=== PATIENT | female | born 1980 | race Caucasian/White ===

== ENCOUNTER → 2018-06-09 07:43 | Outpatient (CLI) | payer OTHER, SELFPAY ==
--- NOTE | 2018-06-09 07:47 | RAD_ITS ---
STUDY: X-RAY - LEFT ANKLE REASON FOR EXAM: Female, 38 years old. Pain following a recent fall. TECHNIQUE: 3 view(s) of the ankle. COMPARISON: None. FINDINGS: Normal visualized distal tibia and fibula. There is evidence of a nondisplaced small avulsion fracture of the medial malleolus. Normal tibiotalar articulation and ankle mortise. Small plantar spur. The visualized subtalar, talonavicular, calcaneocuboid and tarsal articulations are normal. Diffuse soft tissue swelling. RAD/Ankle min 3 Views IMPRESSION: Findings suggestive of a nondisplaced avulsion fracture of the medial malleolus. Soft tissue swelling. Electronically Signed: Vasu Maier MD at 9:51 EST , Service support ,
== END ==
PROVIDERS: Referring Provider Physician Assistant; Visit Provider Physician Assistant
DX: S93.402A Sprain of unspecified ligament of left ankle, initial encounter (principal); W19.XXXA Unspecified fall, initial encounter
CPT/HCPCS: 73610

== ENCOUNTER → 2018-06-12 14:49 | Outpatient (CLI) | payer OTHER, SELFPAY ==
[2018-06-12 14:04] VITALS: BMI 48.1
--- NOTE | 2018-06-12 14:54 | RAD_ITS ---
STUDY: X-RAY - LEFT ANKLE REASON FOR EXAM: Female, 38 years old. Injury of the left ankle TECHNIQUE: 3 view(s) of the ankle. COMPARISON: 06/09/2018 FINDINGS: There is a small, well-corticated bony density adjacent to the medial malleolus, which is stable since 06/09/2018. Normal medial and lateral malleoli. Normal tibiotalar articulation and ankle mortise on neutral and stress views. Small calcaneal spur noted. The visualized subtalar, talonavicular, calcaneocuboid and tarsal articulations are normal. There is mild soft tissue swelling. RAD/Ankle 2 Views IMPRESSION: 1. No malalignment on neutral or stress views. 2. Medial avulsion fracture, age indeterminate (well-corticated). Electronically Signed: Elver Jennings MD at 21:13 EST , Service support ,
--- NOTE | 2018-06-12 14:54 | RAD_ITS ---
STUDY: X-RAY - LEFT TIBIA AND FIBULA REASON FOR EXAM: Female, 38 years old. Pain. TECHNIQUE: 2 view(s) of the tibia and fibula were obtained. COMPARISON: None. FINDINGS: Normal visualized tibia. Normal visualized fibula. The soft tissue structures are unremarkable. RAD/Tibia & Fibula 2 Views IMPRESSION: Normal x-ray examination of the tibia and fibula. Electronically Signed: Vasu Maier MD at 15:29 EST , Service support ,
== END ==
PROVIDERS: Referring Provider Physician Assistant; Visit Provider Physician Assistant
DX: S93.402A Sprain of unspecified ligament of left ankle, initial encounter (principal)
CPT/HCPCS: 73590; 73600

== ENCOUNTER → 2018-07-01 11:05 | Outpatient (CLI) | payer OTHER, SELFPAY ==
[2018-07-01 10:19] VITALS: BMI 48.1
--- NOTE | 2018-07-01 11:07 | RAD_ITS ---
HISTORY: [facility]-EXT/JT COMPARISON: 06/12/18 radiographs. FINDINGS: # of images incl. paperwork: 3 XR Ankle Min 3 Views: Left. SOFT TISSUES: Unremarkable. No radiopaque foreign body. BONES: No acute fracture or subluxation. No sclerotic or destructive changes observed. Chronic appearing corticated fragment adjacent to the medial malleolus unchanged. JOINTS: Degenerative changes are noted. RAD/Ankle min 3 Views IMPRESSION: Degenerative changes. No acute fracture or dislocation. at 2239 Reported and signed by: Nikhil Moya MD Electronically Signed: Nikhil Moya, at 22:38 EST Tel , Service support ,
== END ==
PROVIDERS: Referring Provider Physician Assistant; Visit Provider Physician Assistant
DX: S93.402A Sprain of unspecified ligament of left ankle, initial encounter (principal)
CPT/HCPCS: 73610

== ENCOUNTER 2018-09-01 10:00 | Outpatient (RCR) | payer OTHER, SELFPAY ==
[2018-06-12 14:04] VITALS: BMI 48.1
--- NOTE | 2018-06-26 12:31 | HP.PTEVAL ---
Patient's Visit Information DIMITRY ACOSTA is a 38 year old F referred to Physical Therapy by LAVONNE Vivas with a diagnosis of L ankle sprain. Date of Evaluation: 06/26/18 Physical Therapist: Audi Palacios, PT, ATC - Visit Plan Frequency: 2-3x /Week Duration: 4-6 Weeks Plan: L ankle stretching and strengthening, balance and proprio ex's, gait, bike, and HEP. - Subjective Findings: DOI: 05/29/18. Pt reports she was walking down stairs at work when she fell and injured her L ankle. Pt reports she tried to just keep working and ignore it, but the pain, swelling, and discoloration continued to worsen. Pt then went to the DR where she received an Xray. Pt reports her results came back with no positive findings. Pt reports she was told to just do some PT and take a couple weeks off work. Pt reports she hasnt noticed much improvement since her DOI. Pt reports she is still very limted with prolonged standing and walking secondary to pain. Pt also notes significant difficulty with stair negotiation secondary to pain. No sleep difficulty at this time secondary to pain. Pt reports most of her pain is on the anterior portion of her L ankle. 2/10 at rest, 9/10 at worst (prolonged ambulation) - Pain L ankle Pain Intensity (Out of 10): 2 Pain Intensity Range: 9 - Objective Neuro: N LE sensation is WNL to light touch. Palpation: Significant pain with palpation to ant tib/fib region. No obvious deformity. Minor swelling noted. Girth at malleolus line: L ankle 27 cm, R ankle 25 cm. ROM: R ankle DF= 5, PF= 50, Inv= 42, ever= 30; L ankle DF= -7, PF= 40, Inv= 25, ever= 25 degrees. MMT: L ankle is 4-/5 throughout and painful with testing. R ankle is 5/5 throughout - Goals Goal 1:: Decrease L ankle pain x 50% to aid with increasing tolerance for WB'ing activity Goal Time Frame: 4-6 Weeks Goal 2:: Increase L ankle DF ROM x 10-15 degrees to aid with resotring a more normalized gait pattern Goal Time Frame: 4-6 Weeks Goal 3:: Increase L ankle strength x 1 grade to aid with RTW without limitations Goal Time Frame: 4-6 Weeks Goal 4:: I with HEP Goal Time Frame: 4-6 Weeks - Rehabilitation Potential Physical Therapy Diagnosis: L ankle pain, weakness, and swelling secondary to L ankle sprain Rehabilitation Potential: Good - Anticipated Interventions Patient/Client Instruction: Educate patient on: Condition, Plan of Care For the Purpose of:: To improve self management Therapeutic Exercise to Include: Strength training, Endurance training, Balance training, Flexibilty training, Gait and locomotor training, Active ROM For the Purpose of:: To decrease pain, To increase ROM, To improve muscle performance and motor function Cryotherapy (ice pack, ice massage): Yes For the Purpose of:: To decrease pain Thank you for the opportunity to evaluate your patient. For Medicare and Medicare HMO plans, please review the plan of care and approve it. It will need to be FAXED BACK to us at [phone] for Medicare purposes. For Medicare only, by signing this I certify the plan of care. Please let me know if there are questions or concerns regarding this plan of care. Physician Signature: Date:
--- NOTE | 2018-07-30 11:07 | HP.PTREVAL ---
LAVONNE Vivas, It has been my pleasure to treat DIMITRY ACOSTA over the last 12 visits for L ankle sprain. Please see the progress note below for an update on the physical therapy plan of care! Subjective: Pt is sore today Objective/Function: L ankle pain 08/13. L ankle MMT: PF= 09/07. All other measurements . L ankle DF ROM: -5 degrees. Pt is progressing well with strength at this time but would benefit from further PT to focus on ROM, pain, and strengthening Plan Plan: Attempt to get 12 more PT visits approved to focus on strength, ROM, and pain Goals Goal 1:: Decrease L ankle pain x 50% to aid with increasing tolerance for WB'ing activity Goal Time Frame: 4-6 Weeks Goal Progress: Progressing Goal 2:: Increase L ankle DF ROM x 10-15 degrees to aid with resotring a more normalized gait pattern Goal Time Frame: 4-6 Weeks Goal Progress: Progressing Goal 3:: Increase L ankle strength x 1 grade to aid with RTW without limitations Goal Time Frame: 4-6 Weeks Goal Progress: Progressing Goal 4:: I with HEP Goal Time Frame: 4-6 Weeks Goal Progress: Goal Met Anticipated Interventions Patient/Client Instruction: Educate patient on: Condition, Plan of Care For the Purpose of:: To improve self management Therapeutic Exercise to Include: Strength training, Endurance training, Balance training, Flexibilty training, Gait and locomotor training, Active ROM For the Purpose of:: To decrease pain, To increase ROM, To improve muscle performance and motor function Cryotherapy (ice pack, ice massage): Yes For the Purpose of:: To decrease pain Please do not hesitate to contact me at [phone] by phone or if you have questions or concerns regarding this new plan of care! Sincerely, Audi Palacios, PT, ATC
--- NOTE | 2018-09-08 10:34 | HP.PT.NRP ---
HP - Discharge Summary (1) - Patient Information DIMITRY ACOSTA was seen in my office for initial evaluation on 06/26/18. The following Plan of Care was established for this patient: Initial Frequency: 2-3x /Week Initial Duration: 4-6 Weeks - Anticipated Interventions Patient/Client Instruction: Educate patient on: Condition, Plan of Care For the Purpose of:: To improve self management Therapeutic Exercise to Include: Strength training, Endurance training, Balance training, Flexibilty training, Gait and locomotor training, Active ROM For the Purpose of:: To decrease pain, To increase ROM, To improve muscle performance and motor function Cryotherapy (ice pack, ice massage): Yes For the Purpose of:: To decrease pain This patient was last seen in our office . Pertinent comments regarding their Physical therapy will appear below: Pt phoned the clinic to cancel todays appointment. Pt reports she is doing well and wants to cancel all remaining appointments. Pt is discharged at this time. At this point I will be discontinuing this patient from physical therapy. I would be happy to see this patient again in the future if found appropriate by the physician. Thank you! Audi Palacios, PT, ATC
== END 2018-09-01 19:00 | disposition home or self-care (01) ==
LOC: PT 10:00
PROVIDERS: Referring Provider Physician Assistant; Visit Provider Physician Assistant
DX: S93.402D Sprain of unspecified ligament of left ankle, subsequent encounter (principal)
CPT/HCPCS: 97110; 97161; 97530